=== PATIENT | female | born 1935 | race Caucasian/White ===

== ENCOUNTER → 2017-01-02 | Outpatient (CLI) | payer MEDICARE, OTHER ==
[~2017-01-02] MED LIST: CALCIUM CITRAT200 MG PO; CENTRUM SILVER1 TA1 PO; FERROUS SU325 MG/TAB PO; FOLIC ACID 40400 MCG PO; FOSAMAX PO; LEVOTHYROXINE PO; MVI PO; VITAMIN C PURE500 MG PO
[2017-01-02 18:11] LABS: SYNOVIAL FL. MONONUCLEAR 16.8 % (0-75); SYNOVIAL FL. POLYMORPHONUCLEAR 83.2 % (0-25); SYNOVIAL FLUID WBC 12090 /mm3 (200-600)
[2017-01-02 18:13] LABS: SYNOVIAL FLUID APPEARANCE CLOUDY; SYNOVIAL FLUID COLOR YELLOW
== END ==
LOC: ZCOL.LAB 16:38
PROVIDERS: Orthopaedic Surgery
DX: M25.561 Pain in right knee (principal)

== ENCOUNTER → 2017-08-01 | Outpatient (CLI) | payer MEDICARE, OTHER | LOC: COL.RAD 08:36 | DX: M25.511 Pain in right shoulder (principal); Z96.611 Presence of right artificial shoulder joint | CPT/HCPCS: Q9967 ==